=== PATIENT | female | born 1960 | race Two or more races ===

== ENCOUNTER 2021-12-07 18:48 | Emergency (ER) | payer OTHER ==
[~2021-12-07] VITALS: Ht 160 cm; Wt 65.8 kg
--- NOTE | 2021-12-07 18:50 | NUR ---
Dr. Marroquin at bedside for MSE.
[2021-12-07] MEDS ORDERED: FAMOTIDINE. 20 MG/2 ML VIAL IV ONE ×2 (19:00→19:22)
[2021-12-07] MEDS ORDERED: predniSONE 20 MG TABLET PO ONE (19:00)
[2021-12-07] MEDS ORDERED: diphenhydrAMINE 50 MG/1 ML VIAL IV ONE (19:00)
--- NOTE | 2021-12-07 19:15 | NUR ---
Xray at bedside.
[2021-12-07] MEDS ORDERED: diphenhydrAMINE 50 MG/1 ML VIAL ONE (19:22)
[2021-12-07] MEDS ORDERED: predniSONE 20 MG TABLET ONE (19:23)
[2021-12-07 19:24] LABS: HEMATOCRIT 39.9 % (31.2-41.9); MEAN CORPUSCULAR HEMOGLOBIN 22.1 uug (24.7-32.8); MEAN CORPUSCULAR VOLUME 68.1 fL (75.5-95.3); PLATELET COUNT (AUTO) 308 K/uL (179-408)
[2021-12-07 19:28] LABS: CREATININE 0.7 mg/dL (0.6-1.3)
[2021-12-07 19:44] LABS: BILIRUBIN,TOTAL 0.3 mg/dL (0.2-1.0); TOTAL PROTEIN, SERUM 7.9 g/dL (6.4-8.2)
[2021-12-07] MEDS ORDERED: POTASSIUM CHLORIDE 20 MEQ TAB.PRT.SR PO ONE (20:15)
[2021-12-07] MEDS ORDERED: POTASSIUM CHLORIDE 20 MEQ TAB.PRT.SR ONE (20:25)
[2021-12-07 21:18] LABS: EOSINOPHILS % (MANUAL) 5 % (0-8); LYMPHOCYTES % (MANUAL) 34 % (20-40); MONOCYTES % (MANUAL) 1 % (2-10); NEUTROPHILS % (MANUAL) 60 % (42-75)
[2021-12-07] MEDS ORDERED: SUMATRIPTAN SUCCINATE 50 MG TABLET PO ONE (21:30)
[2021-12-07] MEDS ORDERED: SUMATRIPTAN SUCCINATE 50 MG TABLET ONE (21:32)
[2021-12-07 21:54] VITALS: BP 116/65
--- NOTE | 2021-12-07 21:54 | NUR ---
Patient discharged to home in stable condition. Written and verbal after care instructions given. Patient verbalizes understanding of instructions. Stressed follow up or return to ER for worsening s/s. Patient out of ER with steady gait, no acute signs of distress, VSS, all belongings taken, IV site discontinued.
== END 2021-12-07 21:55 | disposition home or self-care (01) ==
LOC: ER 18:50
DX: R06.02 Shortness of breath (principal); T46.1X5A Adverse effect of calcium-channel blockers, initial encounter; Y92.019 Unspecified place in single-family (private) house as the place of occurrence of the external cause; R94.31 Abnormal electrocardiogram [ECG] [EKG]; J45.909 Unspecified asthma, uncomplicated; Z88.6 Allergy status to analgesic agent
CPT/HCPCS: 36415; 71045; 80053; 83880; 84484; 85007; 85025; 93005 ×2; 96374; 96375; 99285; J1200; J3490; J7512; 70030-TC; A4663